=== PATIENT | female | born 1950 | race Hispanic/Latino ===

== ENCOUNTER 2020-08-01 12:01 | Emergency (ER) | payer MEDICARE, OTHER ==
[~2020-08-01] VITALS: Ht 149.9 cm; Wt 63.5 kg
[~2020-08-01 12:01] MED LIST: LOMOTIL TABLET1 EACH PO; POTASSIUM CHLO20 ME1 PO; ULTRAM 50MG50 MG PO
[2020-08-01 12:53] LABS: BASOPHILS # (AUTO) 0.1 (0.0-0.1); BASOPHILS % 0.5 % (0.0-1.0); EOSINOPHILS # (AUTO) 0.3 (0.0-0.4); EOSINOPHILS % 2.9 % (0.0-6.0); HEMATOCRIT 39.3 % (34.2-44.1); HEMOGLOBIN 13.4 g/dL (12.0-16.0); LYMPHOCYTES # (AUTO) 1.4 (1.0-3.2); LYMPHOCYTES % 14.7 % (18.0-39.1); MEAN CORPUSCULAR HEMOGLOBIN 28.2 pg (28-32); MEAN CORPUSCULAR HGB CONC 34.1 g/dL (31-35); MEAN CORPUSCULAR VOLUME 82.6 fL (81-99); MONOCYTES # (AUTO) 0.6 (0.2-0.8); MONOCYTES % 5.8 % (4.4-11.3); NEUTROPHILS # (AUTO) 7.1 (2.1-6.9); NEUTROPHILS % 75.4 % (38.7-80.0); PLATELET COUNT 347 x10e3/uL (140-360); RED BLOOD COUNT 4.76 x10e6/uL (3.6-5.1); RED CELL DISTRIBUTION WIDTH 14.5 % (11.7-14.4)
[2020-08-01 13:17] LABS: ALBUMIN 3.8 g/dL (3.5-5.0); ALBUMIN/GLOBULIN RATIO 0.9 (0.8-2.0); ANION GAP 14.1 mmol/L (8-16); CALCIUM 9.5 mg/dL (8.4-10.2); CREATININE, SERUM 1.01 mg/dL (0.57-1.11); POTASSIUM 3.1 mmol/L (3.5-5.1)
[2020-08-01 13:24] LABS: CREATINE KINASE MB 2.8 ng/mL (0-5.0)
[2020-08-01] MEDS ORDERED: POTASSIUM CITR10 MEQ PO (13:53)
[2020-08-01] MEDS ORDERED: POTASSIUM CHLORIDE 20 MEQ TAB CR PO ONE (14:01)
[2020-08-01] MEDS ORDERED: POTASSIUM CHLORIDE 20 MEQ TAB CR PO STA (14:08)
== END 2020-08-01 13:50 | disposition home or self-care (01) ==
LOC: ER 12:21
DX: U07.1 COVID-19 (principal); R05 Cough; R11.0 Nausea; R19.7 Diarrhea, unspecified; E11.65 Type 2 diabetes mellitus with hyperglycemia; I10 Essential (primary) hypertension; E78.5 Hyperlipidemia, unspecified; N28.9 Disorder of kidney and ureter, unspecified; E78.00 Pure hypercholesterolemia, unspecified; Z95.1 Presence of aortocoronary bypass graft
CPT/HCPCS: 36415; 71045; 80053; 82550; 82553; 83880; 84484; 85025; 99283

== ENCOUNTER 2022-04-26 05:04 | Emergency (ER) | payer MEDICARE, OTHER ==
[~2022-04-26] VITALS: Ht 149.9 cm; Wt 63.5 kg
[~2022-04-26 05:04] MED LIST changes: +POTASSIUM CITR10 MEQ PO
[2022-04-26 06:11] LABS: BASOPHILS # (AUTO) 0.1 (0.0-0.1); BASOPHILS % 0.2 % (0.0-1.0); EOSINOPHILS % 0.1 % (0.0-6.0); HEMATOCRIT 25.2 % (34.2-44.1); HEMOGLOBIN 7.8 g/dL (12.0-16.0); LYMPHOCYTES # (AUTO) 1.2 (1.0-3.2); LYMPHOCYTES % 5.3 % (18.0-39.1); MEAN CORPUSCULAR HEMOGLOBIN 24.8 pg (28-32); MONOCYTES # (AUTO) 1.1 (0.2-0.8); MONOCYTES % 4.8 % (4.4-11.3); NEUTROPHILS # (AUTO) 20.2 (2.1-6.9); NEUTROPHILS % 88.5 % (38.7-80.0); PLATELET COUNT 307 x10e3/uL (140-360); RED BLOOD COUNT 3.15 x10e6/uL (3.6-5.1)
[2022-04-26 06:19] LABS: CLARITY,URINE TURBID (CLEAR); COLOR,URINE YELLOW (YELLOW); KETONES,URINE NEGATIVE (NEGATIVE); LEUKOCYTE ESTERASE ,URINE NEGATIVE (NEGATIVE); NITRITE,URINE NEGATIVE (NEGATIVE); PROTEIN,URINE DIPSTICK NEGATIVE (NEGATIVE); URINE UROBILINOGEN 0.2 mg/dL (0.2 - 1)
[2022-04-26 06:20] LABS: INR 0.86; PROTHROMBIN TIME 12.5 seconds (11.9-14.5)
[2022-04-26 06:21] LABS: BACTERIA,URINE MANY /HPF; EPITHELIAL CELLS,URINE FEW /LPF; RBC,URINE 0-5 /HPF (0-5); RENAL EPITHELIAL CELLS,URINE FEW
[2022-04-26 06:22] LABS: ALBUMIN 2.6 g/dL (3.5-5.0); ALBUMIN/GLOBULIN RATIO 0.7 (0.8-2.0); ANION GAP 14.5 mmol/L (8-16); CALCIUM 8.5 mg/dL (8.4-10.2); POTASSIUM 4.5 mmol/L (3.5-5.1); TRANSITIONAL EPI CELLS,URINE MODERATE
[2022-04-26] MEDS ORDERED: IOPAMIDOL 370 MG/ML 100 ML INFUS..BTL INJ ONE (06:45)
[2022-04-26] MEDS ORDERED: METFORMIN HCL500 MG PO (07:30)
[2022-04-26] MEDS ORDERED: LEVOTHYROXINE75 MCG PO (07:32)
[2022-04-26] MEDS ORDERED: SUCRALFATE1 GM PO (07:32)
[2022-04-26] MEDS ORDERED: OMEPRAZOLE40 MG PO (07:34)
[2022-04-26] MEDS ORDERED: HYDRALAZINE HC100 MG PO (07:34)
[2022-04-26] MEDS ORDERED: CARVEDILOL12.5 MG PO (07:35)
[2022-04-26] MEDS ORDERED: ATORVASTATIN CA20 MG PO (07:35)
[2022-04-26] MEDS ORDERED: ISOSORBIDE MONO30 MG PO (07:37)
[2022-04-26] MEDS ORDERED: CLONIDINE HCL0.1 MG PO (07:37)
[2022-04-26] MEDS ORDERED: CLOPIDOGREL75 MG PO (07:38)
[2022-04-26] MEDS ORDERED: AMLODIPINE BESYL5 MG PO (07:40)
[2022-04-26 11:32] VITALS: BP 129/39
[2022-04-26 12:10] LABS: BAND NEUTROPHILS % (MANUAL) 7 %; LYMPHOCYTES % (MANUAL) 2 % (19-48); MONOCYTES % (MANUAL) 3 % (3.4-9.0); NEUTROPHILS % (MANUAL) 88 % (40-74); PLATELET ESTIMATE ADEQUATE; PLATELET MORPHOLOGY COMMENT NORMAL
== END 2022-04-26 11:20 | disposition other institution (70) ==
LOC: ER 05:24
DX: K92.2 Gastrointestinal hemorrhage, unspecified (principal); D64.9 Anemia, unspecified; N39.0 Urinary tract infection, site not specified; D72.829 Elevated white blood cell count, unspecified
CPT/HCPCS: 36415; 74174; 80053; 81001; 83605; 85025; 85610; 87040; 99284; J2543; Q9967; U0002

== ENCOUNTER → 2025-03-22 | Day surgery (SDC) | payer MEDICARE ==
[2025-03-15 16:13] LABS: BASOPHILS % 0.5 % (0.0-1.0); EOSINOPHILS % 4.1 % (0.0-6.0); LYMPHOCYTES % 32.5 % (18.0-39.1); MONOCYTES % 9.0 % (4.4-11.3); NEUTROPHILS % 53.7 % (38.7-80.0); RED CELL DISTRIBUTION WIDTH 14.6 % (11.7-14.4)
[~2025-03-22] MED LIST changes: +AMLODIPINE BESYL5 MG PO; +ARAVA20 MG PO; +ATORVASTATIN CA20 MG PO; +CARVEDILOL12.5 MG PO; +CHOLESTYRAMINE L4 GM PO; +CLONIDINE HCL0.1 MG PO; +CLOPIDOGREL75 MG PO; +DICYCLOMINE HCL10 MG PO; +ENTRESTO 49 MG1 EACH PO; +FARXIGA5 MG PO; +GABAPENTIN300 MG PO; +GLYCOPYRROLATE INJ 0.2 MG/ML VIAL ONE; +HYDRALAZINE HC100 MG PO; +ISOSORBIDE MONO30 MG PO; +LACTATED RINGER'S 1,000 ML ONE; +LASIX40 MG PO; +LEVOTHYROXINE75 MCG PO; +LIDOCAINE HCL 2% LOCAL INJ 5 ML SDV VIAL INJ ONE; +METFORMIN HCL500 MG PO; +MULTI-VITAMIN1 EACH PO; +OMEPRAZOLE40 MG PO; +PANTOPRAZOLE SO40 MG PO; +PROPOFOL IV EMULSION 50 ML IV ONE; +SUCRALFATE1 GM PO; +ZETIA10 MG PO
[2025-03-22 09:20] VITALS: TEMP 97.9
[2025-03-22 09:40] VITALS: BP 128/53; PULSE 67; RESP 16; O2SAT 100
== END ==
LOC: OR 06:35
PROVIDERS: ATTEND Internal Medicine Gastroenterology
DX: K52.9 Noninfective gastroenteritis and colitis, unspecified (principal); K57.30 Diverticulosis of large intestine without perforation or abscess without bleeding; K64.8 Other hemorrhoids; I10 Essential (primary) hypertension; I25.10 Atherosclerotic heart disease of native coronary artery without angina pectoris; Z95.5 Presence of coronary angioplasty implant and graft; E78.5 Hyperlipidemia, unspecified; R73.03 Prediabetes; E03.9 Hypothyroidism, unspecified; Z95.1 Presence of aortocoronary bypass graft; Z01.810 Encounter for preprocedural cardiovascular examination; Z01.812 Encounter for preprocedural laboratory examination
CPT/HCPCS: 36415 ×2; 45380; 82948; 85025; 88305; 93005; J2003; J2704; J7121; 45378